=== PATIENT | female | born 1995 | race African-American/Black ===

== ENCOUNTER 2019-03-13 08:48 | Observation (INO) | payer MEDICAID ==
[2019-03-13] MEDS ORDERED: ONDANSETRON PF 4 MG/2 ML VIAL. IV PRN (09:45)
[2019-03-13] MEDS ORDERED: ACETAMINOPHEN 325 MG TABLET. PO PRN (09:45)
[2019-03-13 09:56] LABS: BILIRUBIN,URINE SMALL (NEG); CLARITY,URINE CLOUDY; NITRITE,URINE NEGATIVE (NEG); PROTEIN,URINE 30 mg/dL (NEG-TRACE)
[2019-03-13 10:03] LABS: BASO % 0 % (0-3); EOS % 0 % (0-3); HEMATOCRIT 27.3 % (36.0-47.0); LYMPH # 0.4 x10^3/uL (1.0-4.8); LYMPH % 8 % (24-48); MEAN CORPUSCULAR HEMOGLOBIN 28 pg (25-35); MEAN CORPUSCULAR HGB CONC 33 g/dL (31-37); MEAN CORPUSCULAR VOLUME 84 fL (79-100); MONO # 0.4 x10^3/uL (0.0-1.1); MONO % 8 % (0-9); NEUT # 4.4 x10^3/uL (1.8-7.7); NEUT % 83 % (31-73); PLATELET COUNT 192 x10^3/uL (140-400); RED BLOOD COUNT 3.27 x10^6/uL (3.50-5.40); RED CELL DISTRIBUTION WIDTH 13.5 % (11.5-14.5); WHITE BLOOD COUNT 5.3 x10^3/uL (4.0-11.0)
[2019-03-13 10:04] LABS: BACTERIA,URINE MANY /HPF (0-FEW); COLOR,URINE YELLOW; SQUAMOUS EPITHELIAL CELL,UR MANY /LPF; WBC,URINE >40 /HPF (0-4)
[2019-03-13 10:07] LABS: YEAST,URINE PRESENT /HPF
[2019-03-13 10:20] LABS: ALBUMIN 2.5 g/dL (3.4-5.0); ALBUMIN/GLOBULIN RATIO 0.7 (1.0-1.7); CALCIUM 7.8 mg/dL (8.5-10.1); CREATININE 0.5 mg/dL (0.6-1.0); GFR 183.4; POTASSIUM 3.2 mmol/L (3.5-5.1); TOTAL BILIRUBIN 0.4 mg/dL (0.2-1.0); TOTAL PROTEIN 6.2 g/dL (6.4-8.2)
[2019-03-13 10:58] LABS: INFLUENZA A PATIENT NEGATIVE (NEGATIVE); INFLUENZA B PATIENT NEGATIVE (NEGATIVE)
[2019-03-13] MEDS: ACETAMINOPHEN 500 MG TABLET PO PRN ×2 (11:07→23:35)
[2019-03-13] MEDS: IV RINGERS,LACTATED 1000ML 1,000 ML IV SCH ×2 (11:13→22:03)
--- NOTE | 2019-03-13 13:15 | PDOC1 ---
OB - History Hx of Present Care: Good Care Ultrasounds: Normal mid trimester US Obstetrical Complications: None Medical Complications: None Past Family/Social History * Past Medical, Surgical, Family and Obstetric Histories reviewed from chart. Rubella: Immune RPR/VDRL: Negative GBS Status: Unknown HBsAG: Negative OB - Chief Complaint & HPI Date of Admission: Date of Admission: Mar 13, 2019 at 08:48 Chief Complaint/History : 2 Para: 1 EGA: 30 Reason for admission: observation (dehydration and viral syndrome) Admission Nurse Assessment Rev: Yes OB - Admission Exam Physical Exam HEENT: Other (dry mucous membranes) Heart: Regular Rate Lungs: Crackles Abdomen: Gravid, Non tender, Soft Extremities: Normal Pulses, No tenderness or swelling Reflexes: Normal Cervical Dilatation: None Effacement: 0% Station: Ballotable Membranes: Intact Heart Rate: Normal Accelerations: Accelerations Present Decelerations: No decelerations Contractions on Admission: None Text A: 30 wks IUP Viral Syndrome Dehydration with electrolyte imbalance P: Observation for IV hydration and syptomatic care. Recheck electrolytes in am. LISSY SMYTH Jr, MD Mar 13, 2019 13:15
[2019-03-14 04:55] LABS: BASO % 1 % (0-3); EOS % 1 % (0-3); HEMATOCRIT 24.3 % (36.0-47.0); HEMOGLOBIN 8.1 g/dL (12.0-15.5); LYMPH # 0.6 x10^3/uL (1.0-4.8); LYMPH % 21 % (24-48); MEAN CORPUSCULAR HEMOGLOBIN 28 pg (25-35); MEAN CORPUSCULAR HGB CONC 33 g/dL (31-37); MEAN CORPUSCULAR VOLUME 83 fL (79-100); MONO # 0.3 x10^3/uL (0.0-1.1); MONO % 11 % (0-9); NEUT # 1.9 x10^3/uL (1.8-7.7); NEUT % 67 % (31-73); PLATELET COUNT 156 x10^3/uL (140-400); RED BLOOD COUNT 2.92 x10^6/uL (3.50-5.40); RED CELL DISTRIBUTION WIDTH 13.5 % (11.5-14.5); WHITE BLOOD COUNT 2.9 x10^3/uL (4.0-11.0)
[2019-03-14] MEDS: IV RINGERS,LACTATED 1000ML 1,000 ML IV SCH (05:11)
[2019-03-14 05:14] LABS: ALBUMIN 1.9 g/dL (3.4-5.0); ALBUMIN/GLOBULIN RATIO 0.5 (1.0-1.7); CALCIUM 7.7 mg/dL (8.5-10.1); CREATININE 0.5 mg/dL (0.6-1.0); GFR 183.4; TOTAL BILIRUBIN 0.2 mg/dL (0.2-1.0); TOTAL PROTEIN 5.4 g/dL (6.4-8.2)
[2019-03-14 05:19] LABS: POTASSIUM 2.8 mmol/L (3.5-5.1)
[2019-03-14] MEDS ORDERED: POTASSIUM CL 40MEQ IN 0.9%NACL 1,000 ML IV ONE (05:30)
--- NOTE | 2019-03-14 08:02 | RAD ---
Examination: OB LIMITED History: Estimate weight assessment. Amniotic fluid index and placental assessment. Comparison/Correlation: None Findings: Transabdominal OB ultrasound exam was performed. Single intrauterine gestation with cephalic lie is present. Anteriorly located placenta is present. heart rate of 152 bpm. movement including cardiac activity noted. Four-chamber heart, stomach, fluid in the urinary bladder, brain in particular are visualized. Maternal cervical length 5 cm noted. Cephalic lie is present. Amniotic fluid index is 10.3 and this is normal. Estimated weight is 1372 g. Biparietal diameter is 7.4 cm corresponding to 29 weeks 4 days. Head circumference is 26.8 cm corresponding to 29 weeks 1 day. Abdominal circumference is 25.3 cm corresponding to 29 weeks 3 days. Femur length is 5.5 cm corresponding to 29 weeks 1 day. Head circumference to abdominal circumference ratio is 1.1. Average ultrasound age is 29 weeks 2 days. Ultrasound EDC is 05/28/2019. Impression: Single living intrauterine gestation with cephalic lie is present. Placenta is at the anterior wall. Estimated weight is at the 33rd percentile. EDC by ultrasound is 8 days greater than EDC by clinical age. Electronically signed by: Cuate Cihrinos MD (03/14/2019 7:59 AM) [facility]
--- NOTE | 2019-03-14 09:40 | PDOC ---
OB Progress Note Date of Service 03/14/19 Time of Evaluation 0967 Notes Pt. feeling better today. SHe had a few episodes of diarrhea as well. Her potassium is less than 3. She is receiving IV hydration and electrolyte supplimentation. OB sono normal. Lab Laboratory Tests Test 03/13/19 09:40 03/13/19 09:50 03/13/19 09:55 03/14/19 04:15 Influenza Type A Antigen Negative (NEGATIVE) Influenza Type B Antigen Negative (NEGATIVE) Urine Collection Type Unknown Urine Color Yellow Urine Clarity Cloudy Urine pH 6.0 Urine Specific [place] >=1.030 Urine Protein 30 mg/dL (NEG-TRACE) Urine Glucose (UA) Negative mg/dL (NEG) Urine Ketones (Stick) >=80 mg/dL (NEG) Urine Blood Negative (NEG) Urine Nitrite Negative (NEG) Urine Bilirubin Small (NEG) Urine Urobilinogen Dipstick 1.0 mg/dL (0.2 mg/dL) Urine Leukocyte Esterase Large (NEG) Urine RBC 1-2 /HPF (0-2) Urine WBC >40 /HPF (0-4) Urine Squamous Epithelial Cells Many /LPF Urine Bacteria Many /HPF (0-FEW) Urine Mucus Marked /LPF Urine Yeast Present /HPF White Blood Count 5.3 x10^3/uL (4.0-11.0) 2.9 x10^3/uL (4.0-11.0) Red Blood Count 3.27 x10^6/uL (3.50-5.40) 2.92 x10^6/uL (3.50-5.40) Hemoglobin 9.0 g/dL (12.0-15.5) 8.1 g/dL (12.0-15.5) Hematocrit 27.3 % (36.0-47.0) 24.3 % (36.0-47.0) Mean Corpuscular Volume 84 fL (79-100) 83 fL (79-100) Mean Corpuscular Hemoglobin 28 pg (25-35) 28 pg (25-35) Mean Corpuscular Hemoglobin Concent 33 g/dL (31-37) 33 g/dL (31-37) Red Cell Distribution Width 13.5 % (11.5-14.5) 13.5 % (11.5-14.5) Platelet Count 192 x10^3/uL (140-400) 156 x10^3/uL (140-400) Neutrophils (%) (Auto) 83 % (31-73) 67 % (31-73) Lymphocytes (%) (Auto) 8 % (24-48) 21 % (24-48) Monocytes (%) (Auto) 8 % (0-9) 11 % (0-9) Eosinophils (%) (Auto) 0 % (0-3) 1 % (0-3) Basophils (%) (Auto) 0 % (0-3) 1 % (0-3) Neutrophils # (Auto) 4.4 x10^3/uL (1.8-7.7) 1.9 x10^3/uL (1.8-7.7) Lymphocytes # (Auto) 0.4 x10^3/uL (1.0-4.8) 0.6 x10^3/uL (1.0-4.8) Monocytes # (Auto) 0.4 x10^3/uL (0.0-1.1) 0.3 x10^3/uL (0.0-1.1) Eosinophils # (Auto) 0.0 x10^3/uL (0.0-0.7) 0.0 x10^3/uL (0.0-0.7) Basophils # (Auto) 0.0 x10^3/uL (0.0-0.2) 0.0 x10^3/uL (0.0-0.2) Sodium Level 135 mmol/L (136-145) 139 mmol/L (136-145) Potassium Level 3.2 mmol/L (3.5-5.1) 2.8 mmol/L (3.5-5.1) Chloride Level 102 mmol/L (98-107) 106 mmol/L (98-107) Carbon Dioxide Level 20 mmol/L (21-32) 22 mmol/L (21-32) Anion Gap 13 (6-14) 11 (6-14) Blood Urea Nitrogen 4 mg/dL (7-20) 3 mg/dL (7-20) Creatinine 0.5 mg/dL (0.6-1.0) 0.5 mg/dL (0.6-1.0) Estimated GFR (Cockcroft-Gault) 183.4 183.4 BUN/Creatinine Ratio 8 (6-20) 6 (6-20) Glucose Level 86 mg/dL (70-99) 80 mg/dL (70-99) Calcium Level 7.8 mg/dL (8.5-10.1) 7.7 mg/dL (8.5-10.1) Total Bilirubin 0.4 mg/dL (0.2-1.0) 0.2 mg/dL (0.2-1.0) Aspartate Amino Transf (AST/SGOT) 18 U/L (15-37) 20 U/L (15-37) Alanine Aminotransferase (ALT/SGPT) 15 U/L (14-59) 11 U/L (14-59) Alkaline Phosphatase 106 U/L (46-116) 85 U/L (46-116) Total Protein 6.2 g/dL (6.4-8.2) 5.4 g/dL (6.4-8.2) Albumin 2.5 g/dL (3.4-5.0) 1.9 g/dL (3.4-5.0) Albumin/Globulin Ratio 0.7 (1.0-1.7) 0.5 (1.0-1.7) Laboratory Tests Test 03/13/19 09:40 03/13/19 09:50 03/13/19 09:55 03/14/19 04:15 Influenza Type A Antigen Negative (NEGATIVE) Influenza Type B Antigen Negative (NEGATIVE) Urine Collection Type Unknown Urine Color Yellow Urine Clarity Cloudy Urine pH 6.0 Urine Specific [place] >=1.030 Urine Protein 30 mg/dL (NEG-TRACE) Urine Glucose (UA) Negative mg/dL (NEG) Urine Ketones (Stick) >=80 mg/dL (NEG) Urine Blood Negative (NEG) Urine Nitrite Negative (NEG) Urine Bilirubin Small (NEG) Urine Urobilinogen Dipstick 1.0 mg/dL (0.2 mg/dL) Urine Leukocyte Esterase Large (NEG) Urine RBC 1-2 /HPF (0-2) Urine WBC >40 /HPF (0-4) Urine Squamous Epithelial Cells Many /LPF Urine Bacteria Many /HPF (0-FEW) Urine Mucus Marked /LPF Urine Yeast Present /HPF White Blood Count 5.3 x10^3/uL (4.0-11.0) 2.9 x10^3/uL (4.0-11.0) Red Blood Count 3.27 x10^6/uL (3.50-5.40) 2.92 x10^6/uL (3.50-5.40) Hemoglobin 9.0 g/dL (12.0-15.5) 8.1 g/dL (12.0-15.5) Hematocrit 27.3 % (36.0-47.0) 24.3 % (36.0-47.0) Mean Corpuscular Volume 84 fL (79-100) 83 fL (79-100) Mean Corpuscular Hemoglobin 28 pg (25-35) 28 pg (25-35) Mean Corpuscular Hemoglobin Concent 33 g/dL (31-37) 33 g/dL (31-37) Red Cell Distribution Width 13.5 % (11.5-14.5) 13.5 % (11.5-14.5) Platelet Count 192 x10^3/uL (140-400) 156 x10^3/uL (140-400) Neutrophils (%) (Auto) 83 % (31-73) 67 % (31-73) Lymphocytes (%) (Auto) 8 % (24-48) 21 % (24-48) Monocytes (%) (Auto) 8 % (0-9) 11 % (0-9) Eosinophils (%) (Auto) 0 % (0-3) 1 % (0-3) Basophils (%) (Auto) 0 % (0-3) 1 % (0-3) Neutrophils # (Auto) 4.4 x10^3/uL (1.8-7.7) 1.9 x10^3/uL (1.8-7.7) Lymphocytes # (Auto) 0.4 x10^3/uL (1.0-4.8) 0.6 x10^3/uL (1.0-4.8) Monocytes # (Auto) 0.4 x10^3/uL (0.0-1.1) 0.3 x10^3/uL (0.0-1.1) Eosinophils # (Auto) 0.0 x10^3/uL (0.0-0.7) 0.0 x10^3/uL (0.0-0.7) Basophils # (Auto) 0.0 x10^3/uL (0.0-0.2) 0.0 x10^3/uL (0.0-0.2) Sodium Level 135 mmol/L (136-145) 139 mmol/L (136-145) Potassium Level 3.2 mmol/L (3.5-5.1) 2.8 mmol/L (3.5-5.1) Chloride Level 102 mmol/L (98-107) 106 mmol/L (98-107) Carbon Dioxide Level 20 mmol/L (21-32) 22 mmol/L (21-32) Anion Gap 13 (6-14) 11 (6-14) Blood Urea Nitrogen 4 mg/dL (7-20) 3 mg/dL (7-20) Creatinine 0.5 mg/dL (0.6-1.0) 0.5 mg/dL (0.6-1.0) Estimated GFR (Cockcroft-Gault) 183.4 183.4 BUN/Creatinine Ratio 8 (6-20) 6 (6-20) Glucose Level 86 mg/dL (70-99) 80 mg/dL (70-99) Calcium Level 7.8 mg/dL (8.5-10.1) 7.7 mg/dL (8.5-10.1) Total Bilirubin 0.4 mg/dL (0.2-1.0) 0.2 mg/dL (0.2-1.0) Aspartate Amino Transf (AST/SGOT) 18 U/L (15-37) 20 U/L (15-37) Alanine Aminotransferase (ALT/SGPT) 15 U/L (14-59) 11 U/L (14-59) Alkaline Phosphatase 106 U/L (46-116) 85 U/L (46-116) Total Protein 6.2 g/dL (6.4-8.2) 5.4 g/dL (6.4-8.2) Albumin 2.5 g/dL (3.4-5.0) 1.9 g/dL (3.4-5.0) Albumin/Globulin Ratio 0.7 (1.0-1.7) 0.5 (1.0-1.7) Medications Current Medications Ringer's Solution 1,000 ml @ 125 mls/hr Q8H IV Last administered on 03/14/19at 05:11; Start 03/13/19 at 09:35 Acetaminophen (Tylenol) 650 mg PRN Q6HRS PRN PO PAIN, TEMP > 100.5'F; Start 03/13/19 at 09:45; Stop 03/13/19 at 10:49; Status DC Ondansetron HCl (Zofran) 4 mg PRN Q6HRS PRN IV NAUSEA; Start 03/13/19 at 09:45 Acetaminophen (Tylenol) 1,000 mg PRN Q6HRS PRN PO PAIN, TEMP > 100.5'F Last administered on 03/13/19at 23:35; Start 03/13/19 at 11:00 Potassium Chloride/Sodium Chloride 1,000 ml @ 75 mls/hr 1X ONCE IV Last administered on 03/14/19at 05:40; Start 03/14/19 at 05:30; Stop 03/14/19 at 18:49 Exam Abd: soft, non tender Assessment A: 30 wks IUP Viral Syndrome Hypokalemia P: Continue IV hydration and electrolyte replacement. Recheck potassium this afternoon. If improved, then consider d/c home with f/u next week. LISSY SMYTH Jr, MD Mar 14, 2019 09:40
[2019-03-14] MEDS: ACETAMINOPHEN 500 MG TABLET PO PRN (11:42)
[2019-03-14 15:00] LABS: BASO % 0 % (0-3); EOS % 0 % (0-3); HEMATOCRIT 28.1 % (36.0-47.0); HEMOGLOBIN 9.3 g/dL (12.0-15.5); LYMPH # 0.4 x10^3/uL (1.0-4.8); LYMPH % 12 % (24-48); MEAN CORPUSCULAR HEMOGLOBIN 28 pg (25-35); MEAN CORPUSCULAR HGB CONC 33 g/dL (31-37); MEAN CORPUSCULAR VOLUME 84 fL (79-100); MONO # 0.3 x10^3/uL (0.0-1.1); MONO % 8 % (0-9); NEUT % 79 % (31-73); PLATELET COUNT 174 x10^3/uL (140-400); RED BLOOD COUNT 3.35 x10^6/uL (3.50-5.40); RED CELL DISTRIBUTION WIDTH 13.8 % (11.5-14.5); WHITE BLOOD COUNT 3.8 x10^3/uL (4.0-11.0)
[2019-03-14 15:13] LABS: ALBUMIN 2.3 g/dL (3.4-5.0); ALBUMIN/GLOBULIN RATIO 0.6 (1.0-1.7); CREATININE 0.5 mg/dL (0.6-1.0); GFR 183.4; POTASSIUM 3.5 mmol/L (3.5-5.1); TOTAL BILIRUBIN 0.2 mg/dL (0.2-1.0); TOTAL PROTEIN 6.3 g/dL (6.4-8.2)
== END 2019-03-14 17:00 | disposition home or self-care (01) ==
LOC: 3 SO LND 08:48
PROVIDERS: ADMIT Obstetrics & Gynecology; ATTEND Obstetrics & Gynecology
DX: O98.513 Other viral diseases complicating pregnancy, third trimester (principal); B34.9 Viral infection, unspecified; O26.893 Other specified pregnancy related conditions, third trimester; E86.0 Dehydration; E87.8 Other disorders of electrolyte and fluid balance, not elsewhere classified; R19.7 Diarrhea, unspecified; E87.6 Hypokalemia; Z3A.30 30 weeks gestation of pregnancy
CPT/HCPCS: 36415; 76815; 80053; 81001; 85025; 87086; 87804; 96361; 96365; 96366; G0378; G0379; J3480; J7120

== ENCOUNTER 2019-04-26 16:15 | Observation (INO) | payer MEDICAID ==
[2019-04-26] MEDS ORDERED: IV RINGERS,LACTATED 1000ML 1,000 ML IV SCH (16:18)
[2019-04-26] MEDS ORDERED: ONDANSETRON PF 4 MG/2 ML VIAL. IV PRN (16:30)
[2019-04-26] MEDS ORDERED: MAG HYDROX/ALUMINUM HYD/SIMETH 30 ML ORAL.SUSP PO PRN (16:30)
[2019-04-26] MEDS ORDERED: ACETAMINOPHEN 325 MG TABLET. PO PRN (16:30)
[2019-04-26 17:00] LABS: BILIRUBIN,URINE SMALL (NEG); CLARITY,URINE CLEAR; NITRITE,URINE NEGATIVE (NEG); PH,URINE 7.5; PROTEIN,URINE 30 mg/dL (NEG-TRACE)
[2019-04-26 17:21] LABS: BARBITURATES NEG (NEG); BENZODIAZEPINES NEG (NEG); CANNABINOIDS NEG (NEG); COCAINE NEG (NEG); METHADONE NEG (NEG); OPIATES NEG (NEG); PHENCYCLIDINE NEG (NEG)
[2019-04-26 17:23] LABS: AMPHETAMINE/METHAMPHETAMINE NEG (NEG); COLOR,URINE YELLOW
[2019-04-26 17:24] LABS: BACTERIA,URINE MODERATE /HPF (0-FEW); RBC,URINE OCC /HPF (0-2); SQUAMOUS EPITHELIAL CELL,UR FEW /LPF; WBC,URINE OCC /HPF (0-4)
[2019-04-26 17:30] LABS: AMNIO PT NEGATIVE
== END 2019-04-26 20:00 | disposition home or self-care (01) ==
LOC: 3 SO LND 16:15
PROVIDERS: ADMIT Obstetrics & Gynecology; ATTEND Obstetrics & Gynecology
DX: O42.913 Preterm premature rupture of membranes, unspecified as to length of time between rupture and onset of labor, third trimester (principal); O62.9 Abnormality of forces of labor, unspecified; Z3A.36 36 weeks gestation of pregnancy
CPT/HCPCS: 36415; 80307; 81001; 84112; 87086; G0378; G0379; J7120